=== PATIENT | male | born 1970 | race Caucasian/White ===

== ENCOUNTER → 2017-08-13 | Outpatient (CLI) | payer BC ==
[~2017-08-13] MED LIST: CLIN300 PO; FISH1000 PO; HYDACE5 PO; MULVITMIND PO; ONDA4ODT MM; PROM25 PO; RXHYDACE PO
[2017-08-13 15:10] LABS: BASOPHILS ABSOLUTE AUTO 0.04 K/mm3 (0.00-0.23); BASOPHILS PERCENT AUTO 1 % (0-2); EOSINOPHILS ABSOLUTE AUTO 0.66 K/mm3 (0.00-0.68); EOSINOPHILS PERCENT AUTO 11 % (0-6); Hematocrit 44.9 % (37.0-53.0); Hemoglobin 15.6 g/dL (13.5-17.5); IMMATURE GRAN ABSOLUTE AUTO 0.01 K/mm3 (0.00-0.10); IMMATURE GRAN PERCENT AUTO 0 % (0-1); LYMPHOCYTES ABSOLUTE AUTO 0.72 K/mm3 (0.84-5.20); LYMPHOCYTES PERCENT AUTO 12 % (21-46); MONOCYTES ABSOLUTE AUTO 0.58 K/mm3 (0.16-1.47); MONOCYTES PERCENT AUTO 10 % (4-13); Mean Corpuscular HGB 29.8 pg (26.0-34.0); Mean Corpuscular HGB Conc 34.7 g/dL (31.5-36.5); Mean Corpuscular Volume 86 fL (80-100); Mean Platelet Volume 9.6 fL (9.1-12.4); NEUTROPHILS ABSOLUTE AUTO 3.94 K/mm3 (1.96-9.15); NEUTROPHILS PERCENT AUTO 66 % (41-73); Platelet Count 175 K/mm3 (150-400); RDW Coefficient Variation 12.6 % (11.7-14.2); RDW Standard Deviation 39.4 fL (35.1-46.3); Red Blood Cell Count 5.23 M/mm3 (4.30-5.90); White Blood Cell Count 5.95 K/mm3 (4.00-11.30)
[2017-08-13 15:21] LABS: Alanine Aminotransfer (ALT/SGP 55 U/L (12-78); Albumin/Globulin Ratio 1.1 (0.8-1.8); Alk Phos 71 U/L (40-126); Anion Gap 7 mmol/L (6-16); Aspartate Aminotrans (AST/SGOT 28 U/L (12-37); Bilirubin, Total 0.3 mg/dL (0.1-1.0); Blood Urea Nitrogen 12 mg/dL (8-24); Bun/Creatinine Ratio 12.2 (12.0-20.0); CO2, Blood 32 mmol/L (21-32); Chloride, Blood 101 mmol/L (98-108); Creatinine, Blood 0.98 mg/dL (0.60-1.20); Globulin, Blood 3.5 g/dL (2.2-4.0); Glomerular Filtration Rate >60 (60-); Glucose, Blood 145 mg/dL (70-99); Potassium, Blood 3.8 mmol/L (3.5-5.5); Sodium, Blood 140 mmol/L (136-145); Total Protein, Blood 7.5 g/dL (6.4-8.2)
[2017-08-13 15:23] LABS: Troponin I <0.017 ng/mL (0.000-0.040)
== END | disposition home or self-care (01) ==
LOC: LAB EV 15:02
PROVIDERS: Physician Assistant
DX: R07.9 Chest pain, unspecified (principal)
CPT/HCPCS: 80053; 83880; 84484; 85025

== ENCOUNTER 2021-07-19 17:18 | Inpatient (IN) | payer BC ==
[~2021-07-19] VITALS: Ht 182.9 cm; Wt 108.3 kg
[2021-07-19 18:22] LABS: BASOPHILS ABSOLUTE AUTO 0.04 K/mm3 (0.00-0.23); BASOPHILS PERCENT AUTO 1 % (0-2); EOSINOPHILS ABSOLUTE AUTO 0.44 K/mm3 (0.00-0.68); EOSINOPHILS PERCENT AUTO 6 % (0-6); Hematocrit 44.6 % (37.0-53.0); Hemoglobin 14.9 g/dL (13.5-17.5); IMMATURE GRAN ABSOLUTE AUTO 0.02 K/mm3 (0.00-0.10); IMMATURE GRAN PERCENT AUTO 0 % (0-1); LYMPHOCYTES ABSOLUTE AUTO 1.46 K/mm3 (0.84-5.20); LYMPHOCYTES PERCENT AUTO 21 % (21-46); MONOCYTES ABSOLUTE AUTO 0.64 K/mm3 (0.16-1.47); MONOCYTES PERCENT AUTO 9 % (4-13); Mean Corpuscular HGB 29.7 pg (26.0-34.0); Mean Corpuscular HGB Conc 33.4 g/dL (31.5-36.5); Mean Corpuscular Volume 89 fL (80-100); Mean Platelet Volume 9.3 fL (9.1-12.4); NEUTROPHILS ABSOLUTE AUTO 4.28 K/mm3 (1.96-9.15); NEUTROPHILS PERCENT AUTO 62 % (41-73); Platelet Count 204 K/mm3 (150-400); RDW Coefficient Variation 12.6 % (11.7-14.2); Red Blood Cell Count 5.02 M/mm3 (4.30-5.90); White Blood Cell Count 6.88 K/mm3 (4.00-11.30)
[2021-07-19 19:13] LABS: Alanine Aminotransfer (ALT/SGP 63 U/L (12-78); Albumin/Globulin Ratio 1.2 (0.8-1.8); Alk Phos 57 U/L (50-136); Anion Gap 4 mmol/L (6-16); Aspartate Aminotrans (AST/SGOT 33 U/L (12-37); Bilirubin, Total 0.2 mg/dL (0.1-1.0); Blood Urea Nitrogen 25 mg/dL (8-24); Bun/Creatinine Ratio 20.7 (12.0-20.0); CO2, Blood 29 mmol/L (21-32); Calcium, Blood 9.2 mg/dL (8.5-10.1); Chloride, Blood 106 mmol/L (98-108); Creatinine, Blood 1.21 mg/dL (0.60-1.20); Globulin, Blood 3.3 g/dL (2.2-4.0); Glomerular Filtration Rate >60 (60-); Glucose, Blood 123 mg/dL (70-99); Potassium, Blood 3.8 mmol/L (3.5-5.5); Sodium, Blood 139 mmol/L (136-145); Total Protein, Blood 7.3 g/dL (6.4-8.2)
[2021-07-19] MEDS ORDERED: LISINOPRIL-HCT1 EACH PO (23:27)
[2021-07-19] MEDS ORDERED: ATEN25 PO (23:50)
[2021-07-19] MEDS ORDERED: Vitamin D1000 UNI1 PO (23:51)
[2021-07-19] MEDS ORDERED: FISH OIL 1,2001 EAC4 PO (23:51)
[2021-07-19] MEDS ORDERED: Aspir 8181 MG PO (23:52)
--- NOTE | 2021-07-20 00:48 | NUR ---
ADMIT NOTE: ARRIVED TO PCU FROM ED AT 23:45. PT AMBULATED TO BED INDEPENDENTLY. VSS. A&O. REPORTS MILD CHEST PAIN THAT IS MUCH IMPROVED FROM ARRIVAL TO ED. RATES CHEST PAIN 4/10 WITHOUT RADIATING. NITROPASTE ON CHEST. STARTED LR @75MLS/HR. LAB IN ROOM TO DRAW XA FOR EVENTUAL HEPARIN GTT TO START.
[2021-07-20] MEDS ORDERED: FLUT1DIS5 (01:42)
[2021-07-20 03:57] LABS: Hematocrit 46.2 % (37.0-53.0); Hemoglobin 15.4 g/dL (13.5-17.5); Mean Corpuscular HGB 29.6 pg (26.0-34.0); Mean Corpuscular HGB Conc 33.3 g/dL (31.5-36.5); Mean Corpuscular Volume 89 fL (80-100); Mean Platelet Volume 9.5 fL (9.1-12.4); Platelet Count 213 K/mm3 (150-400); RDW Coefficient Variation 12.5 % (11.7-14.2); RDW Standard Deviation 41.2 fL (35.1-46.3); White Blood Cell Count 7.54 K/mm3 (4.00-11.30)
--- NOTE | 2021-07-20 06:20 | NUR ---
SHIFT SUMMARY: PT CONTINUED TO HAVE CHEST PAIN ON ADMIT WHILE NITROPASTE ON CHEST AND REPORTS THAT IT IS "MILD 4/10". VSS. PT UP WITH STAND BY ASSIST AND NO SOB OR INCREASE IN CHEST PAIN WHEN AMBULATING. HEPARIN GTT 15 UNITS/HR. THIRD TROP ELEVATED TO 4577. CARDIOLOGY CONSULT ENTERED PER DR. TRIPP. PT NPO OVERNIGHT.
[2021-07-20 08:40] LABS: CHOL/HDL RATIO 3.1; Cholesterol 169 mg/dL (50-200); HDL Cholesterol 55 mg/dL (>39); LDL/HDL RATIO 1.8; Low Density Lipoprotein Chol 101 mg/dL (0-110); Triglycerides 64 mg/dL (30-160); Very Low Density Lipoprot Chol 12 mg/dL (6-32)
[2021-07-20 09:34] LABS: Influenza A, PCR NEGATIVE (NEGATIVE); Influenza B, PCR NEGATIVE (NEGATIVE); Resp Syncytial Virus, PCR NEGATIVE (NEGATIVE); SARS-Cov-2 (COVID-19) PCR, MMC NEGATIVE (NEGATIVE)
--- NOTE | 2021-07-20 11:43 | NUR ---
PT OFF THE UNIT TO IRRIGATION EQUIPMENT REMOVER PROCEDURE.
--- NOTE | 2021-07-20 12:40 | NUR ---
PT ARRIVED BACK TO RO[id number]. TR BAND TO R WRIST WITH 10ML OF AIR PER RN REPORT. SITE IS SOFT, NONTENDER, NO SWELLING OR HEMATOMA NOTED. FINGERS ARE PINK WARM AND DRY, SPO2 MONITOR PLACED ON R INDEX FINGER, PT DENIES PAIN NUMBNESS OR TINGLING. PT IS A&OX4, SEE DOCUMENTED VS. EDUCATED PT ABOUT RIGHT WRIST PRECAUTIONS POST PROCEDURE, PT VERBALIZES UNDERSTANDING. CALL LIGHT IN REACH. WILL CONTINUE TO MONITOR.
--- NOTE | 2021-07-20 14:24 | NUR ---
Pt. is awake in bed. Pt. welcomes my visit. Pt. is unsettled about his diminished sense of purpose in life. Facilitate a life review. Develop Rapport. Pt. displays evidence of trust and shares detail about his life. Listen empathetically and give pastoral psychosocial rehabilitation counselor. Pt. verbalized concerns about signifiant relationships in his life. Pt. verbalized concerns over their care should something happen to him. Pt. became cathartic. Praayed with pt. Pt. displayed evidence of renewed hope and resolve to better care for his health. Pt. verbalized gratitude for the spiritual care visit.
--- NOTE | 2021-07-20 18:38 | NUR ---
PT TO ASSISTANT GUEST SERVICES MANAGER TODAY, NO INTERVENTION. R RADIAL SITE RECOVERED WITHOUT INCIDENT. PT DENIES CHEST PAIN. NO ACUTE EVENTS. WILL CONTINUE TO MONITOR AND GIVE REPORT TO ONCOMING MAR OBRIEN.
--- NOTE | 2021-07-21 06:18 | NUR ---
SHIFT SUMMARY: PT CATH SITE RT WRIST WNL. VSS. NSR. NO ACUTE EVENTS OVERNIGHT. PT STATES HE IS READY TO GO HOME.
[2021-07-21 09:03] LABS: Albumin, Blood 4.2 g/dL (3.4-5.0); Anion Gap 7 mmol/L (6-16); Blood Urea Nitrogen 18 mg/dL (8-24); Bun/Creatinine Ratio 21.6 (12.0-20.0); CO2, Blood 28 mmol/L (21-32); Calcium, Blood 9.2 mg/dL (8.5-10.1); Chloride, Blood 105 mmol/L (98-108); Creatinine, Blood 0.83 mg/dL (0.60-1.20); Glomerular Filtration Rate >60 (60-); Glucose, Blood 122 mg/dL (70-99); Potassium, Blood 3.9 mmol/L (3.5-5.5); Sodium, Blood 140 mmol/L (136-145)
[2021-07-21] MEDS ORDERED: ATOR80 PO (09:16)
[2021-07-21] MEDS ORDERED: LISI20 PO (09:16)
[2021-07-21] MEDS ORDERED: CLOP75 PO (09:17)
--- NOTE | 2021-07-21 09:40 | NUR ---
DISCHARGE TEACHING REVIEWED WITH PT INCLUDING MEDICATION LIST, NEW PRESCRIPTIONS, RADIAL SITE CARE AND FOLLOW UP APPOINTMENTS. PT VERBALIZES UNDERSTANDING AND HAS NO QUESTIONS OR CONCERNS AT THIS TIME. IV'S REMOVED, WNL. ALL BELONGINGS TO BE SENT HOME WITH PT WHEN HIS ARRIVES TO TAKE HIM HOME. NO OTHER DISCHARGE NEEDS IDENTIFIED.
--- NOTE | 2021-07-23 08:57 | NUR ---
Per Dr. Alvares discharge appropriate. Patient did not oppose discharge. Patient is discharged home. Date of discharge: 07/21/2021 Date of admission: 07/19/2021 Provisional diagnosis at time of admission: NSTEMI Final Diagnosis at time of discharge: NSTEMI Transportation provided by: Family Location/Residence: [address] [place] [address] DME Ordered: None ordered Follow-ups needed: [facility] will contact patient to schedule hospital follow-up visit. Reinforced importance of hospital follow-up with PCP. Provider/PCP: Dante Lacey When: WITHIN 1 WEEK Specialty: Cardiology When: WITHIN 2 WEEKS Confirmed numbers: Patient [phone] Comment: Patient to contact PCP if any questions regarding medication management, social service needs, and if condition worsens go to Urgent Care/ER. No barriers to discharge. Patient has a strong support network.
== END 2021-07-21 10:22 | disposition home or self-care (01) | DRG 281 ==
LOC: ER 17:18 → PCU 17:19
PROVIDERS: Family Medicine; Internal Medicine Cardiovascular Disease; Physician Assistant; ADMIT Internal Medicine
PROC: 4A023N7 Measurement of Cardiac Sampling and Pressure, Left Heart, Percutaneous Approach (ICD-10-PCS; principal; 2021-07-20)
PROC: B2111ZZ Fluoroscopy of Multiple Coronary Arteries using Low Osmolar Contrast (ICD-10-PCS; 2021-07-20)
PROC: B2151ZZ Fluoroscopy of Left Heart using Low Osmolar Contrast (ICD-10-PCS; 2021-07-20)
DX: I21.4 Non-ST elevation (NSTEMI) myocardial infarction (principal); I74.9 Embolism and thrombosis of unspecified artery; I10 Essential (primary) hypertension; J45.909 Unspecified asthma, uncomplicated; Z20.822 Contact with and (suspected) exposure to COVID-19
CPT/HCPCS: 0241U; 36415; 71046; 80053; 80061; 80069; 84484; 85025; 85027; 85520; 86850; 86900; 86901; 93005; 93010; 93306; 93458; 94762; 99152; 99153; 99285-25; A9270; C1769; C1887; C1894; G0378; J1644; J2250; J2930; J3010; J7030; J7050; J7120; Q9967